=== PATIENT | male | born 1950 | race Caucasian/White ===

== ENCOUNTER 2019-05-26 00:51 | Outpatient (CLI) | payer OTHER, SELFPAY ==
--- NOTE | 2019-05-26 08:40 | DI.CTLCSR_ITS ---
SYMPTOM/DIAGNOSIS: CURRENT SMOKER, F17.210, LUNG CANCER SCREENING CHEST CT LOW DOSE LUNG CANCER SCREENING: CT examination of the chest was performed utilizing low dose noncontrast lung cancer screening protocol. No previous studies available for comparison. Images obtained through the upper abdomen show unremarkable appearance of visualized portions of liver, spleen and kidneys. No mediastinal adenopathy is seen. Tracheobronchial tree appears intact. No supraclavicular or axillary adenopathy is seen. There is diffuse centrilobular emphysema. There is a 5 mm. in diameter, right lower lobe intrapulmonary nodule. There is a 9 mm. in mean diameter left lower lobe intrapulmonary nodule which is fairly well circumscribed. 3-4 mm. left apical intrapulmonary nodule is also noted. CONCLUSION: Multiple intrapulmonary nodules, the largest has about 9 mm. in mean diameter. Category 4A, suspicious nodule. Three month follow up LDCT recommended. Alternatively PET CT may be considered although this nodule is at the lower limits of size for evaluation by PET CT. Lung-RAD Category: Lung RADS Category 4A- Suspicious
== END 2019-05-26 01:11 ==
PROVIDERS: PCP Nurse Practitioner; Visit Provider Nurse Practitioner Gerontology
DX: Z12.2 Encounter for screening for malignant neoplasm of respiratory organs (principal); F17.210 Nicotine dependence, cigarettes, uncomplicated; R91.8 Other nonspecific abnormal finding of lung field
CPT/HCPCS: G0297